=== PATIENT | female | born 1955 | race Two or more races ===

== ENCOUNTER → 2024-08-30 | Outpatient (CLI) | payer OTHER, MEDICAID, SELFPAY ==
[2024-08-30 12:09] LABS: Alanine Aminotransferase 23 U/L (10-49); Albumin, Serum 4.6 gm/dL (3.4-4.8); Alkaline Phosphatase 97 U/L (46-116); Anion Gap 5 (7-16); Aspartate Amino Transferase 20 U/L (0-34); BUN/Creatinine Ratio 14 Ratio (12-20); Bilirubin,Total 0.4 mg/dL (0.3-1.2); Blood Urea Nitrogen 10 mg/dL (9-23); Calcium 9.8 mg/dL (8.3-10.6); Calcium (Corrected) 9.8 mg/dL (8.5-10.1); Carbon Dioxide 28.6 mMol/L (20.0-31.0); Cardiac Risk Estimate 2.2 RATIO (3.7-5.6); Chloride 108 mMol/L (98-107); Cholesterol 152 mg/dL (132-200); Creatinine (Component) 0.7 mg/dL (0.6-1.3); Globulin 2.3 gm/dL (2.3-3.5); Glucose 101 mg/dL (74-106); HDL Cholesterol 68 mg/dL (40-60); LDL Cholesterol,Calculated 63 mg/dL (0-130); Osmolality,Calculated 282 (275-295); Potassium 4.5 mMol/L (3.4-5.1); Sodium 142 mMol/L (136-145); Total Protein 6.9 gm/dL (5.7-8.2); Triglycerides 104 mg/dL (30-150); eGFR > 60 See Note
== END | disposition home or self-care (01) ==
LOC: COPL 10:53
PROVIDERS: PCP Family Medicine; Referring Provider Family Medicine; Visit Provider Family Medicine
DX: E78.00 Pure hypercholesterolemia, unspecified (principal)
CPT/HCPCS: 36415; 80053; 80061

== ENCOUNTER → 2024-09-06 | Outpatient (CLI) | payer OTHER, MEDICAID, SELFPAY ==
[2024-09-06 11:32] LABS: Collection Type, Urine Clean Catch
[2024-09-06 12:53] LABS: Bilirubin,Urine Negative (Negative); Blood,Urine Negative (Negative); Clarity,Urine Clear (Clear/Hazy); Color,Urine Yellow (Lt Yel-Yel); Glucose, Urine Negative (Negative); Ketones,Urine Negative (Negative); Leukocyte Esterase,Urine Negative (Negative); Nitrite,Urine Negative (Negative); Protein,Urine Trace (Neg - Trace); RBC,Urine 3 /hpf (0-3); Specific Gravity,Urine 1.027 (1.001-1.035); Squamous Epithelial Cell,Urine < 1 /hpf (0-5); Urobilinogen,Urine Negative mg/dL (0.0-1.0); WBC,Urine 1 /hpf (0-5)
== END | disposition home or self-care (01) ==
LOC: SLDO 11:26
PROVIDERS: PCP Family Medicine; Referring Provider Family Medicine; Visit Provider Family Medicine
DX: N30.00 Acute cystitis without hematuria (principal)
CPT/HCPCS: 81001; 87086

== ENCOUNTER → 2024-11-24 | Outpatient (CLI) | payer OTHER, MEDICAID, SELFPAY ==
[2024-11-24 10:05] LABS: Cardiac Risk Estimate 1.8 RATIO (3.7-5.6); Cholesterol 147 mg/dL (132-200); HDL Cholesterol 80 mg/dL (40-60); LDL Cholesterol,Calculated 49 mg/dL (0-130); Triglycerides 90 mg/dL (30-150)
== END | disposition home or self-care (01) ==
PROVIDERS: PCP Family Medicine; Referring Provider Family Medicine; Visit Provider Family Medicine
DX: E78.2 Mixed hyperlipidemia (principal)
CPT/HCPCS: 36415; 80061

== ENCOUNTER 2024-12-28 10:28 | Emergency (ER) | payer OTHER, SELFPAY ==
[2024-12-28 10:40] VITALS: BP 147/82; PULSE 75; RESP 18; TEMP 36.7; O2SAT 98; BMI 34.7
--- NOTE | 2024-12-28 10:50 | XR_ITS ---
EXAMINATION: XR knee RT 3V ORDERING PROVIDER: RODOLFO Evans HISTORY: r/o fx TECHNIQUE: 3 radiographs of the right knee were obtained. COMPARISON: None. FINDINGS: No acute fracture or dislocation. Mild tricompartmental osteoarthritic changes most pronounced in the medial patella femoral compartments. No knee joint effusion. IMPRESSION: No acute bony findings.
--- NOTE | 2024-12-28 10:50 | XR_ITS ---
EXAMINATION: US venous doppler LE RT HISTORY: r/o clot COMPARISON: 07/31/2024, right lower extremity venous ultrasound. FINDINGS: Quintanilla scale, color doppler, and spectral waveforms of the right lower extremity veins. The imaged veins are unremarkable without evidence of internal thrombus. Spectral Doppler imaging demonstrates normal wave forms. Posterior to the right knee is a 4.4 x 2.4 x 2.7 cm anechoic collection with neck extending toward the knee joint. No internal color Doppler signal. This probably represents a Pugh's cyst. IMPRESSION: Negative for deep venous thrombosis.
--- NOTE | 2024-12-28 10:57 | PD.EDLOWEX ---
Lower Extremity Injury RME/HPI General Chief Complaint: Extremity Injury, Lower Stated Complaint: SWELLING IN R) LEG/KNEE W/ PAIN X 1 WK 03/28 Time Seen by Provider: 12/28/24 10:39 Source: patient Arrival date/time: 12/28/24 10:28 69-year-old female with a history of hyperlipidemia presents to the emergency room with a chief complaint of swelling, 6 out of 10 tenderness in the right knee x 1 week. Patient denies any trauma. Mode of arrival: ambulatory Limitations: no limitations Related Data Home Medications ?Medication ?Instructions ?Recorded ?Confirmed cholecalciferol (vitamin D3) 25 25 mcg PO QDAY 08/01/24 08/01/24 mcg (1,000 unit) capsule (Vitamin D3) cyanocobalamin (vitamin B-12) 1,000 mcg PO QDAY 08/01/24 08/01/24 1,000 mcg tablet (Vitamin B-12) Previous Rx's ?Medication ?Instructions ?Recorded atorvastatin 40 mg tablet 40 mg PO HS #30 tabs 08/02/24 clopidogrel 75 mg tablet 75 mg PO QDAY 30 days #30 tabs 08/02/24 meclizine 50 mg tablet (Antivert) 50 mg PO BID PRN vertigo #20 tabs 08/11/24 Allergies Allergy/AdvReac Type Severity Reaction Status Date / Time No Known Allergies Allergy Verified 12/28/24 10:35 Review of Systems Review of Systems Systems Reviewed: All systems reviewed, normal except as documented Constitutional Constitutional: Reports system reviewed and no additional complaints, except as documented, Denies fatigue, Denies fever(s), Denies headache(s) and Denies weakness Eyes Eyes: Reports system reviewed and no additional complaints, except as documented, Denies blurry vision and Denies change in vision ENT Ears, Nose, Mouth, and Throat: Reports system reviewed and no additional complaints, except as documented, Denies otalgia, Denies headache(s), Denies nasal congestion, Denies throat swelling and Denies vertigo Cardiovascular Cardiovascular: Reports system reviewed and no additional complaints, except as documented, Denies chest pain, Denies dyspnea and Denies dyspnea on exertion Respiratory Respiratory: Reports system reviewed and no additional complaints, except as documented, Denies chest congestion, Denies cough, Denies dyspnea, Denies dyspnea on exertion and Denies wheezing Gastrointestinal Gastrointestinal: Reports system reviewed and no additional complaints, except as documented, Denies abdominal pain, Denies cramping, Denies nausea and Denies vomiting Genitourinary Genitourinary: Reports system reviewed and no additional complaints, except as documented Musculoskeletal Musculoskeletal: Reports system reviewed and no additional complaints, except as documented, Reports arthralgias, Denies back pain and Denies numbness Integumentary/Breasts Skin/Breast: Reports system reviewed and no additional complaints, except as documented and Denies wounds Neurologic Neurologic: Reports system reviewed and no additional complaints, except as documented, Denies confusion, Denies headache(s), Denies lack of coordination, Denies numbness, Denies vertigo and Denies weakness Psychiatric Psychiatric: Reports system reviewed and no additional complaints, except as documented, Denies anxiety, Denies confusion, Denies depression, Denies paranoia, Denies suicidal ideation and Denies tactile hallucinations Endocrine Endocrine: Reports system reviewed and no additional complaints, except as documented and Denies fatigue Hematologic/Lymphatic Hematologic/Lymphatic: Reports system reviewed and no additional complaints, except as documented and Denies lymphadenopathy Allergic/Immunologic Allergic/Immunologic: Reports system reviewed and no additional complaints, except as documented, Denies throat swelling, Denies urticaria and Denies wheezing Past Medical History Past Medical History NEUROLOGIC: Positive Transient Ischemic Attacks (TIA) (2022); Negative Seizures CARDIAC: Positive Hypercholesterolemia; Negative Cardiac Disorders or Congestive Heart Failure RESPIRATORY: Negative Chronic Obstructive Pulmonary Disease (COPD) or Asthma GENITOURINARY: Negative Renal Disease REPRODUCTIVE: Positive Previous Pregnancies ENDOCRINE: Negative Diabetes Mellitus Type 1 or Diabetes Mellitus Type 2 HEMATOLOGIC: Negative Sickle Cell Disease OTHER HISTORY: Negative Blood Transfusions, Blood Transfusion Reaction, Anesthesia Reactions or Cancer Family History FAMILY HISTORY: Positive Family Cancer (Mother/Sister) Surgical History SURGICAL: Positive Section Social History SMOKING STATUS: Never smoker ED Exam General Limitations: Present no limitations General appearance: Present alert and in no apparent distress Head Head exam: Present atraumatic Eye Eye exam: Present normal appearance, PERRL and EOMI ENT ENT exam: Present normal exam, normal oropharynx and mucous membranes moist Neck Neck exam: Present normal inspection, full ROM and trachea midline Chest Chest inspection: Present normal inspection and symmetric chest wall rise Respiratory Respiratory exam: Present normal lung sounds bilaterally Cardiovascular Cardiovascular exam: Present regular rate, normal rhythm and normal heart sounds Abdominal Exam Abdominal exam: Present soft and normal bowel sounds Extremities Exam Extremities exam: Present normal inspection and full ROM Expanded Lower Extremity Exam Hip/Pelvis exam: Present normal inspection Upper leg exam: Present normal inspection Knee exam: Present tenderness, swelling, effusion, pain with valgus and pain with varus; Absent full ROM, abrasion, laceration, deformity, crepitus, erythema, anterior drawer sign, posterior draw sign, laxity with varus or knee extension intact Lower leg exam: Present normal inspection Ankle exam: Present normal inspection Foot/toe exam: Present normal inspection Gait: observed and limited by pain Back Exam Back exam: Present normal inspection and full ROM Neurological Exam Neurological exam: Present alert, oriented X3 and CN II-XII intact Psychiatric Psychiatric exam: Present normal affect and normal mood Skin Skin exam: Present warm, dry, intact and normal color Course Quality Measures none Orders Category Date Time Status eagle wrap [Splint / Immobilizer] STAT Care 12/28/24 10:50 Completed US venous doppler LE RT Stat Exams 12/28/24 10:50 Completed XR knee RT 3V Stat Exams 12/28/24 10:50 Completed Ketorolac Inj [Toradol Inj] Med 12/28/24 10:57 Discontinued 30 mg IM X1 ONE Vital Signs Vital signs: Vital Signs Temperature 98.1 F 12/28/24 10:40 Pulse Rate 75 12/28/24 10:40 Respiratory Rate 18 12/28/24 10:40 Blood Pressure 147/82 H 12/28/24 10:40 Pulse Oximetry (%) 98 12/28/24 10:40 Oxygen Delivery Method Room Air 12/28/24 10:40 O2 saturation 98% within normal limits Extremity Injury, Lower MDM Narrative MDM Narrative:: 69-year-old female with a history of hyperlipidemia presents to the emergency room with a chief complaint of swelling, 6 out of 10 tenderness in the right knee x 1 week. Patient denies any trauma. Patient is hemodynamically stable and in no apparent distress Physical examination shows tenderness swelling to the knee. The patient denies any trauma or any injury. Patient is able to ambulate but states there is a lot of pain and there is also pain and tenderness to the calf area. Ultrasound Doppler of the lower extremity was negative for any DVT. X-ray of the right knee was negative for any acute fracture or dislocation Patient was educated to follow-up with her primary care provider to assess for any ligament damage or tears as an MRI might be indicated. Patient was discharged and educated to follow-up with primary care provider in the next 24 to 48 hours and return to the emergency room for any evidence of worsening signs or symptoms Patient data External records reviewed:: [facility] previous records Clinical information provided by:: patient Social determinants that could affect healthcare access:: none Patient has the following chronic illnesses:: Hyperlipidemia How is presenting disease/condition affected by chronic disease/condition?: no chronic disease Evaluation data The following diagnostics were reviewed and interpreted by me:: lab results and radiology exam(s) Lab and/or radiology exams considered but not ordered:: Labs and radiology exams considered and ordered Interpretation Summary: Ultrasound Doppler-FINDINGS: Quintanilla scale, color doppler, and spectral waveforms of the right lower extremity veins. The imaged veins are unremarkable without evidence of internal thrombus. Spectral Doppler imaging demonstrates normal wave forms. Posterior to the right knee is a 4.4 x 2.4 x 2.7 cm anechoic collection with neck extending toward the knee joint. No internal color Doppler signal. This probably represents a Pugh's cyst. IMPRESSION: Negative for deep venous thrombosis. Right knee [id number]: No acute fracture or dislocation. Mild tricompartmental osteoarthritic changes most pronounced in the medial patella femoral compartments. No knee joint effusion. IMPRESSION: No acute bony findings. Medications / Prescriptions Medications or Prescriptions considered but not ordered:: Medication given Medication administrations:: Medication Administration History Discontinued Medications Ketorolac Tromethamine (Ketorolac Inj 60 Mg/2 Ml Vial) 30 mg IM X1 ONE Stop: 12/28/24 10:58 Last Admin: 12/28/24 11:16 Dose: 30 mg Documented By: LP Medication given Consultations Consultation(s) initiated? (list below): No Diagnosis Extremity Injury, Lower Differential Diagnosis: other (DVT/knee fracture/knee sprain) Most likely diagnosis given after review of the tests above:: Knee sprain Admission Indicated Admission indicated?: not indicated Admission Request Was there a request for admission?: No Disposition Plan Disposition Plan: Discharge Discharge Attestation Discharge Attestation: The patient and all family members were given an opportunity to ask questions and understood the discharge instructions. Discharge instructions specifically effects, indications for sooner follow up or return to the emergency department, and the expected course of current diagnosis. Patient condition: Stable Discharge Plan Plan Patient Disposition: HOME (Self Care) Disposition Comment: Stable Prescriptions/Referrals Prescriptions/Med Rec: No Action cyanocobalamin (vitamin B-12) [Vitamin B-12] 1,000 mcg Tablet 1,000 mcg PO QDAY cholecalciferol (vitamin D3) [Vitamin D3] 25 mcg (1,000 unit) Capsule 25 mcg PO QDAY clopidogrel 75 mg tablet 75 mg PO QDAY 30 Days Qty: 30 2RF atorvastatin 40 mg tablet 40 mg PO HS Qty: 30 2RF meclizine [Antivert] 50 mg tablet 50 mg PO BID PRN (Reason: vertigo) Qty: 20 0RF Referrals: Rima Wolfe MD [Primary Care Provider] - In 1 week Problem List Clinical Impression: Right knee sprain Patient/Caregiver Discharge Instructions Education Materials: ED EAGLE Wrap, ED Knee Sprain Additional Instructions: Por favor, consulte con brennan m?dico de cabecera en las pr?ximas 24 a 48 horas. Brennan ecograf?a fue negativa para co?gulos de gutierrez. Brennan radiograf?a fue negativa para fractura o luxaci?n aguda. Por favor, consulte con brennan m?dico de cabecera para verificar si hay da?o o desgarro de ligamentos. Si observa alg?n empeoramiento de los signos o s?ntomas, acuda a urgencias de inmediato. Print Language: Swedish Stand Alone Forms: Franc[facility]a Award Info., Patient Portal Info Letter PA/RAILROAD CONDUCTOR Supervising Physician PA/RAILROAD CONDUCTOR Supervising Physician: Dr. LOPEZ
[2024-12-28] MEDS: KETOROLAC INJ 60 MG/2 ML VIAL 30 MG IM (11:16)
== END 2024-12-28 13:10 | disposition home or self-care (01) ==
PROVIDERS: Emergency Provider Emergency Medicine; PCP Family Medicine
DX: S83.91XA Sprain of unspecified site of right knee, initial encounter (principal); M25.461 Effusion, right knee; X58.XXXA Exposure to other specified factors, initial encounter
CPT/HCPCS: 73562; 93971; 96372; 99284; J1885